=== PATIENT | male | born 1950 | race Caucasian/White ===

== ENCOUNTER → 2018-04-30 14:25 | Outpatient (CLI) | payer MEDICARE, OTHER, SELFPAY ==
--- NOTE | 2018-04-30 | DI.RAD.S_ITS ---
PROCEDURE: XR SHOULDER RT MIN 2V INDICATIONS: ARTHROPATHIES TECHNIQUE: 3 views of the shoulder were acquired. COMPARISON: None. FINDINGS: Bones: No fractures or dislocations. No suspicious bony lesions. Visualized ribs appear intact. Degenerative changes are seen, including mild to moderate subacromial spurring. Soft tissues: No suspicious soft tissue calcifications. The visualized lung demonstrates an unremarkable appearance. IMPRESSION: Age-appropriate degenerative changes can be seen. Dictated by: Javi Cancino M.D. on 04/30/2018 at 15:21 Approved by: Javi Cancino M.D. on 04/30/2018 at 15:22
== END ==
PROVIDERS: Family Provider Family Medicine; PCP Family Medicine; Visit Provider Family Medicine
DX: M19.011 Primary osteoarthritis, right shoulder (principal)
CPT/HCPCS: 73030

== ENCOUNTER → 2018-10-26 08:45 | Outpatient (CLI) | payer MEDICARE, OTHER, SELFPAY ==
--- NOTE | 2018-10-26 | DI.RAD.S_ITS ---
PROCEDURE: XR CHEST 2V INDICATIONS: Acute bronchitis, unspecified TECHNIQUE: 2 views of the chest were acquired. COMPARISON: [facility], CHEST 2 VIEW, 04/23/2007, 16:45. [facility], CHEST 2 VIEW, 11/17/2014, 15:20. FINDINGS: Surgical changes and devices: None. Lungs and pleura: Chronic elevation of the right hemidiaphragm. There is a 1.1 x 0.9 cm oval shaped nodular density in the left upper lung zone, unchanged from 11/17/2014, likely benign. Lungs are otherwise clear. No pleural effusions or pneumothorax. Mediastinum: Mediastinal contours are normal. Heart size is normal. Bones and chest wall: No suspicious bony abnormalities. Soft tissues appear unremarkable. IMPRESSION: No acute cardiopulmonary disease. Dictated by: Tyrell Gutierrez M.D. on 10/26/2018 at 10:09 Approved by: Tyrell Gutierrez M.D. on 10/26/2018 at 10:11
== END ==
PROVIDERS: Family Provider Family Medicine; PCP Family Medicine; Visit Provider Family Medicine
DX: J20.9 Acute bronchitis, unspecified (principal)
CPT/HCPCS: 71046

== ENCOUNTER → 2019-07-21 07:32 | Outpatient (CLI) | payer MEDICARE, OTHER, SELFPAY ==
--- NOTE | 2019-07-21 | DI.US.S_ITS ---
ULTRASOUND OF LEFT BREAST: 07/21/2019 CLINICAL: Focal left breast tenderness and lump after falling. No prior exams were available for comparison. Real-time ultrasound of the left breast was performed. Florez scale images of the real-time examination were reviewed. No significant abnormalities were seen sonographically in the left breast. Specifically, no sonographic abnormalities were seen in the area of pain and trauma at the level of the nipple. IMPRESSION: NEGATIVE There is no sonographic evidence of malignancy. There is no abnormality seen in the left breast to correspond with the area of clinical concern, palpable abnormality, and pain in the sub-areolar depth, however, clinical followup is recommended to ensure resolution of symptoms. This exam was interpreted at Station ID: [id number]. Electronically Signed By: Maximino Fortune M.D. aty/:07/21/2019 08:17:48 Ultrasound BI-RADS: 1 Negative
== END ==
PROVIDERS: Family Provider Family Medicine; PCP Family Medicine; Visit Provider Family Medicine
DX: N63.20 Unspecified lump in the left breast, unspecified quadrant (principal); N64.4 Mastodynia
CPT/HCPCS: 76642

== ENCOUNTER 2019-09-02 07:04 | Day surgery (SDC) | payer MEDICARE, OTHER, SELFPAY ==
--- NOTE | 2019-09-02 | PATH_ITS ---
[facility] Accession Number: [id number] . 01 Material submitted: . PART A: colon - ASCENDING COLON POLYP PART B: colon - COLON POLYP AT 60 CM . 01 Clinical history: . SCREENING COLONOSCOPY . 02 Diagnosis: A. Ascending Colon, Polyp, Biopsy: Tubular adenoma. . B. Colon, Polyp at 60 cm, Biopsy: Tubular adenoma. MRV 09/03/2019 1257 Local . 02 Electronically signed: . Jasmin Kamara MD, Pathologist NPI- [id number] . 01 Gross description: . Part A: ASCENDING COLON POLYP: Received in formalin are 4 fragment(s) of reyes, soft tissue measuring 0.1 x 0.1 x 0.1 cm to 0.3 x 0.2 x 0.2 cm submitted entirely in 1 cassette(s) Part B: COLON POLYP AT 60 CM: Received in formalin is 1 fragment(s) of reyes, soft tissue measuring 0.3 x 0.2 x 0.2 cm submitted entirely in 1 cassette(s) /[facility] 09/02/2019 1919 Local . 02 Pathologist provided ICD-10: D12.2, D12.6 . 02 CPT . 894255, [id number] Performed at: 01 [facility] [address] [facility], [place], [place] [id number] MD Reese Vicente MD Phone: [phone] Performed at: 02 [facility] [address] [place], [place] [id number] MD Jasmin Kamara MD Phone: [phone]
[2019-09-02] MEDS: SODIUM CHLORIDE 0.9% 1,000 ML 200 ML IV (08:01)
[2019-09-02 08:05] VITALS: BP 142/91; PULSE 63; RESP 16; TEMP 36.6; O2SAT 97; BMI 32.8
--- NOTE | 2019-09-02 08:42 | PM.PREOP ---
Pre-operative Note Interval Note History & Physical reviewed/Exam performed by Physician: Yes Changes to H&P: No ASA Class (for procedural sedation): II
--- NOTE | 2019-09-02 09:18 | PM.OP.ENDO ---
Operative Date/Time/Diagnoses Date of procedure: 09/02/19 Time of procedure: 09:18 Pre-op diagnosis: Screening exam. History of diverticulitis. Post-op diagnosis: same (Two small polyps removed. Extensive sigmoid diverticulosis.) Procedure & Clinicians Study performed: Colonoscopy with cold biopsy Same procedure as scheduled: Yes Indications: Screening. Last exam 5 years ago Surgeon: Wilmer Ibrahim Procedure Notes SCOAP/Timeout: Performed Procedure in detail: The patient was placed in the left lateral decubitus position and underwent IV sedation directed by the surgeon consisting of fentanyl and Versed. Digital exam was unremarkable. I could not feel his prostate.. The scope was inserted and advanced through the rectum into the sigmoid, descending, transverse, and ascending colon. The patient was noted to have extensive sigmoid diverticulosis. The cecum was reached identified by the ileocecal valve and the appendiceal opening. The ileocecal valve was briefly cannulated. The terminal ileum was normal in appearance. The scope was gradually brought out. Polyps were found at ascending colon(polyp was removed during insertion) and at 60 cm. The scope ultimately was retroflexed in the rectum. The appearance was normal. The scope was removed and the patient tolerated the procedure well. Prep was adequate Scope withdrawal time: 7-1/2 minutes Sedation minutes: 21 Findings: diverticulosis (Sigmoid) and polyp (Two small polyps) Specimen(s): other (Polyps) Complications: none Post-procedure Recommendations: Colonscopy in 5 years Follow up: as needed Disposition: PACU
[2019-09-02] MEDS: MIDAZOLAM 5 MG/5 ML VIAL IV (09:20)
[2019-09-02 09:21] VITALS: BP 133/84; PULSE 55; RESP 10; TEMP 36.8; O2SAT 97
[2019-09-02] MEDS: fentaNYL 250 MCG/5 ML INJ IV (09:21)
[2019-09-02 09:26] VITALS: BP 138/84; PULSE 56; RESP 10; O2SAT 95
[2019-09-02 09:31] VITALS: BP 129/85; PULSE 60; RESP 20; TEMP 36.5; O2SAT 97
[2019-09-02 09:36] VITALS: BP 135/85; PULSE 60; RESP 19; O2SAT 97
[2019-09-02 09:40] VITALS: BP 122/80; PULSE 58; RESP 16; TEMP 36.1; O2SAT 97
== END 2019-09-02 09:52 | disposition home or self-care (01) ==
PROVIDERS: Family Provider Family Medicine; PCP Family Medicine; Visit Provider Specialist
PROC: 0DJD8ZZ Inspection of Lower Intestinal Tract, Via Natural or Artificial Opening Endoscopic (ICD-10-PCS; CPT 45378; principal; 2019-09-02 08:45)
DX: Z12.11 Encounter for screening for malignant neoplasm of colon (principal); Z86.010 Personal history of colon polyps; Z87.19 Personal history of other diseases of the digestive system; K57.30 Diverticulosis of large intestine without perforation or abscess without bleeding; D12.2 Benign neoplasm of ascending colon; D12.6 Benign neoplasm of colon, unspecified
CPT/HCPCS: 45380; 99152; J2250; J3010

== ENCOUNTER → 2019-10-05 07:41 | Outpatient (CLI) | payer MEDICARE, OTHER, SELFPAY ==
--- NOTE | 2019-10-05 07:42 | DI.US.S_ITS ---
PROCEDURE: US CAROTID DOPPLER BI INDICATIONS: BILATERAL CAROTID BRUITS IN FORMER SMOKER TECHNIQUE: Color and pulse Doppler interrogation was performed of both carotid systems, with image documentation and velocity measurements. COMPARISON: None. FINDINGS: Stenosis calculations are based on SRU (Society of Radiologists in Ultrasound) criteria. The flow velocities and the arterial waveforms are normal within both carotid arterial systems. Atherosclerotic plaque is seen on both sides. The estimated degree of internal carotid artery stenosis is less than 50%. Antegrade flow is confirmed within both vertebral arteries. IMPRESSION: No hemodynamically significant stenosis is seen. Atherosclerotic plaque is noted bilaterally. Dictated by: Javi Cancino M.D. on 10/05/2019 at 11:37 Approved by: Javi Cancino M.D. on 10/05/2019 at 11:38
--- NOTE | 2019-10-05 09:20 | PM.TREADMILL ---
Cardiac Stress Test Report Referral & Results Date Patient Seen: 10/05/19 Time Patient Seen: 09:20 Requesting provider: Wilmer Ibrahim Indication: fatigue, dyspnea Rest ECG: sinus rhythm Procedure Note: Standard zuleyka protocol, 5:31, 6.4 mets reduced exercise capacity normal hemodynamic response to exercise no chest pain or anginal symptoms; moderate dyspnea at peak exercise No ST changes with exercise. No ectopy Impression: normal exercise stress test Please note: Actual ECG tracings can be found in the PACS system.
== END ==
PROVIDERS: Family Provider Family Medicine; PCP Family Medicine; Referring Provider Specialist; Visit Provider Specialist
DX: I65.23 Occlusion and stenosis of bilateral carotid arteries (principal); R06.00 Dyspnea, unspecified; R53.83 Other fatigue; R06.02 Shortness of breath; R09.89 Other specified symptoms and signs involving the circulatory and respiratory systems; Z87.891 Personal history of nicotine dependence
CPT/HCPCS: 93016; 93017; 93880

== ENCOUNTER → 2020-04-12 12:14 | Outpatient (CLI) | payer MEDICARE, OTHER, SELFPAY ==
--- NOTE | 2020-04-12 | DI.RAD.S_ITS ---
PROCEDURE: XR KNEE LT 3V INDICATIONS: LEFT KNEE PAIN TECHNIQUE: 3 views of the knee were acquired. COMPARISON: [facility], , KNEE 3V RIGHT, 07/09/2007, 12:02. FINDINGS: Bones: No fractures or dislocations. No suspicious bony lesions. Soft tissues: No joint effusion. No suspicious soft tissue calcifications. IMPRESSION: Normal for age, source of current knee pain symptoms is not seen. Dictated by: Srikanth Liao M.D. on 04/12/2020 at 13:16 Approved by: Srikanth Liao M.D. on 04/12/2020 at 13:53
== END ==
PROVIDERS: Family Provider Family Medicine; PCP Family Medicine; Referring Provider Family Medicine; Visit Provider Family Medicine
DX: M25.562 Pain in left knee (principal)
CPT/HCPCS: 73562

== ENCOUNTER → 2022-03-06 07:46 | Outpatient (CLI) | payer MEDICARE, OTHER, SELFPAY ==
--- NOTE | 2022-03-06 | DI.US.S_ITS ---
PROCEDURE: US ABDOMEN COMPLETE INDICATIONS: Abdominal distension (gaseous) TECHNIQUE: Real-time scanning was performed of the abdominal and retroperitoneal organs, with image documentation. COMPARISON: None. FINDINGS: Liver: The liver demonstrates mildly enlarged size. The liver demonstrates generalized moderately increased echogenicity. This decreases ultrasound sensitivity for detection of hepatic masses. Numerous simple appearing liver cysts are seen, with the largest on the right measuring up to 3.3 cm and the largest on the left measuring up to 4.2 cm. Gallbladder: No findings of gallstones or sludge are seen. The gallbladder wall is not thickened, measuring 3 mm or less. No specific pericholecystic fluid is seen. The sonographic Salcedo sign is negative. Biliary ducts: Not seen, obscured by overlying bowel gas. Pancreas: Visualized portions of the pancreas are sonographically normal. Spleen: Spleen is normal in size and homogeneous in echotexture. Kidneys: Kidneys are normal in size and echotexture. Right kidney measures 11.7 cm long; left kidney measures 12.4 cm long. No hydronephrosis. No solid masses. On the left, there is a 9 mm nonobstructing stone seen inferiorly. On the right, there is a 2.5 cm simple cyst seen superiorly and anteriorly. Aorta: Visualized aorta is normal in caliber at less than 3 cm. Iliacs: Proximal common iliac arteries are normal in caliber at less than 2.5 cm. IVC: Intrahepatic inferior vena cava is patent. Miscellaneous: No free abdominal fluid. IMPRESSION: A cause of bloating is not identified. 9 mm nonobstructing left-sided kidney stone. Enlarged, fatty liver. Normal appearing gallbladder. The biliary tree is not seen, secondary to overlying bowel gas. Incidental note is made of: Simple appearing liver cysts Simple appearing right renal cyst Dictated by: Javi Cancino M.D. on 03/06/2022 at 10:08 Approved by: Javi Cancino M.D. on 03/06/2022 at 10:10
== END ==
PROVIDERS: Family Provider Family Medicine; PCP Family Medicine; Referring Provider Family Medicine; Visit Provider Family Medicine
DX: N20.0 Calculus of kidney (principal); K76.0 Fatty (change of) liver, not elsewhere classified; N28.1 Cyst of kidney, acquired; K76.89 Other specified diseases of liver; R14.0 Abdominal distension (gaseous)
CPT/HCPCS: 76700

== ENCOUNTER → 2022-03-29 13:19 | Outpatient (CLI) | payer MEDICARE, OTHER, SELFPAY ==
--- NOTE | 2022-03-29 | DI.ECHO.S_ITS ---
Version: 1 Study ID: [id number] [address] [place] [address] Name: GEMMA HUIZAR Study Date: 03/29/2022, 1: 45 PM : 1950 BP: 151 / 92 mmHg Gender: Male Height: 73 in Age: 72 Years Weight: 259 lb BSA: 2.40 mA? Ordering: CRISS MONK Referring: CRISS MONK Clinician: Sebas Giraldo Reason For Study: Hypertension History: Summary Statements Normal sinus rhythm; uncontrolled blood pressure with systolic blood pressure of 151 mm Hg. Normal LV size and wall thickness. Normal wall motion and left ventricular systolic function. Ejection fraction is 60-65%. Stage I diastolic dysfunction. Aortic valve leaflets are mildly thickened. However, they open well. There is moderate aortic stenosis based on continuous-wave Doppler data with peak velocity of 3.7 m/s and mean gradient of 29 mmHg. There is mild associated aortic regurgitation. Mildly dilated aortic root measuring 4 cm. Incidental note is made of liver cysts. Compared to prior study performed in 2012, aortic stenosis is newly described. Ascending aorta dimension fell from 4cm to 3.7 cm. Liver cysts are newly described. Procedure: A two-dimensional transthoracic echocardiogram with color flow and Doppler was performed. The study quality was technically adequate. Comparison is made with the echocardiogram of 05/05/2012. Left Ventricle: The left ventricle is normal in size and wall thickness. Left ventricular systolic function is normal. The ejection fraction is estimated to be 60-65%. There are no focal wall motion abnormalities. Diastolic parameters suggest a relaxation abnormality of the left ventricle, consistent with probable normal filling pressures. Right Ventricle: The right ventricle is normal in size and function. Atria: Both atria are normal in size. The interatrial septum grossly appears intact with no obvious evidence for an atrial septal defect. Mitral Valve: There is mild mitral annular calcification. There is no mitral regurgitation noted. Aortic Valve: There is mild aortic valve sclerosis. There is minimally reduced leaflet mobility. The calculated aortic valve area is 1.7 cm2. There is moderate aortic stenosis. There is mild aortic regurgitation. Tricuspid Valve: The tricuspid valve is normal in structure and function. No tricuspid regurgitation. Pulmonary artery pressures cannot be estimated because of the lack of a measurable TR jet velocity. Pulmonic Valve: The pulmonic valve is not well seen, but is grossly normal. There is no pulmonic valvular regurgitation. Great Vessels: The aortic root is mildly dilated. The IVC is of normal diameter and collapses greater than 50% with a sniff. This suggests a low right atrial pressure of 3 mm Hg. Pericardium/ Pleura: There is no pericardial effusion. There is no pleural effusion. 2D and M-Mode Measurements and Calculations LVIDd: 5.3 cm LVOT diam: 2.14 cm LVIDs: 3.3 cm Ao root diam: 4.0 cm IVSd: 0.99 cm asc Aorta Diam: 3.7 cm LVPWd: 1.14 cm LV garcia. diameter/BSA (cm/m^2): 2.22 LV sys. diameter/BSA (cm/m^2): 1.36 TAPSE: 2.27 cm LA A4 area: 20.2 e business consultant? RA area: 13.2 e business consultant? LA A2 area: 23.4 e business consultant? RA long axis: 5.0 cm LA length (vol): 5.3 cm RA vol: 29.8 ml LA vol: 76.2 ml RA : 12.4 ml/mA? LA vol index: 31.7 ml/mA? Doppler Measurements and Calculations Ao V2 max: 343.1 cm/sec LVOT Max Henry: 160.4 cm/sec Ao V2 mean: 235.8 cm/sec LV V1 max P.3 mmHg Ao V2 VTI: 69.2 cm LV V1 VTI: 32.1 cm Ao max P.3 mmHg Ao mean P.1 mmHg MARTINE(I,D): 1.67 e business consultant? MARTINE(V,D): 1.69 e business consultant? MARTINE indexed to BSA (cm^2/m^2): 0.70 sev ratio: 0.46 AI P1/2t: 343.4 msec AI dec slope: 315.5 cm/secA? MV E max henry: 99.0 cm/sec MV dec time: 0.25 sec MV A max henry: 119.1 cm/sec MV E/A: 0.83 Med Peak E' Henry: 6.6 cm/sec Lat Peak E' Henry: 6.6 cm/sec E/e' average: 15.0 Electronically signed by: Trini Ewing M.D. 03/29/2022, 8: 27 PM
== END ==
PROVIDERS: Family Provider Family Medicine; PCP Family Medicine; Referring Provider Family Medicine; Visit Provider Family Medicine
DX: I35.2 Nonrheumatic aortic (valve) stenosis with insufficiency (principal); I10 Essential (primary) hypertension; I77.810 Thoracic aortic ectasia; K76.89 Other specified diseases of liver
CPT/HCPCS: 93306

== ENCOUNTER → 2022-04-22 11:48 | Outpatient (CLI) | payer MEDICARE, OTHER, SELFPAY ==
--- NOTE | 2022-04-22 12:09 | DI.RAD.S_ITS ---
PROCEDURE: XR ABDOMEN 1V INDICATIONS: Kidney stone TECHNIQUE: One view of the abdomen acquired. COMPARISON: None. FINDINGS: Surgical changes and devices: None. Bowel: Bowel gas pattern is normal. Soft tissues: There is a questionable calcification projected over the superior left obturator ring. Visualized solid organ contours appear normal in size. Bones: No suspicious bony lesions. IMPRESSION: 1. No acute intra-abdominal findings. 2. Questionable calcification projected over the superior left obturator ring. Distal ureterolithiasis cannot be excluded. Dictated by: Meena Donaldson M.D. on 04/22/2022 at 12:53 Approved by: Meena Donaldson M.D. on 04/22/2022 at 12:54
== END ==
PROVIDERS: Family Provider Family Medicine; PCP Family Medicine; Referring Provider Urology; Visit Provider Urology
DX: N20.0 Calculus of kidney (principal)
CPT/HCPCS: 74018

== ENCOUNTER → 2022-11-19 10:11 | Outpatient (CLI) | payer MEDICARE, OTHER, SELFPAY ==
--- NOTE | 2022-11-19 | DI.RAD.S_ITS ---
PROCEDURE: XR ABDOMEN 1V INDICATIONS: Calculus of kidney TECHNIQUE: One view of the abdomen acquired. COMPARISON: [facility], CR, XR ABDOMEN 1V, 04/22/2022, 12:12. FINDINGS: Surgical changes and devices: None. Bowel: Bowel gas pattern is normal. Soft tissues: No suspicious abdominal calcifications. Visualized solid organ contours appear normal in size. Stable pelvic calcifications, including the 1.3 centimeter linear calcification projecting in the expected position of the distal left ureter. 0.5 centimeter stone projects over the inferior calyx of the left kidney. 0.4 centimeter stone projects over the right lower quadrant, right of midline, possibly within the ureter. Bones: No suspicious bony lesions. IMPRESSION: 4 millimeter stone projects over the right lower quadrant, possibly within the right ureter. Correlate with right flank pain. 5 millimeter stone overlying the inferior calyx of the left kidney. Stable pelvic calcifications. Dictated by: Buck Wallace M.D. on 11/19/2022 at 13:09 Approved by: Buck Wallace M.D. on 11/19/2022 at 13:11
== END ==
PROVIDERS: Family Provider Family Medicine; PCP Family Medicine; Referring Provider Urology; Visit Provider Urology
DX: Z12.5 Encounter for screening for malignant neoplasm of prostate (principal); N20.0 Calculus of kidney
CPT/HCPCS: 36415; 74018; 84153; G0103

== ENCOUNTER → 2023-10-14 08:03 | Outpatient (CLI) | payer MEDICARE, OTHER, SELFPAY ==
--- NOTE | 2023-10-14 08:05 | DI.ECHO.S_ITS ---
[facility] +---------+ : : [address] : : : : [id number] : : : : Phone: [phone]+ Echocardiogram Report + + :Name: GEMMA HUIZAR Study Date: 10/14/2023 Height: 72 in : :[facility] ReadingLocation: Weight: 248 lb : : Gender: Male BSA: 2.3 m2 : :: 1950 Age: 73 yrs BP: 141/94 mmHg: :Reason For Study: HYPERTENSION : :Ordering Physician: LACHO, : :CRISS Barahona Performed By: Nita Gomez : :Referring: CRISS MONK : + + Interpretation Summary The ejection fraction is estimated to be 60-65%. Diastolic parameters suggest probable normal left ventricular diastolic function and normal filling pressures. The right ventricle is normal in size and function. There is moderate aortic stenosis. There is mild aortic regurgitation. There is mild tricuspid regurgitation. The right ventricular systolic pressure is estimated to be at least 21 mmHg based on an estimated right atrial pressure of 3 mm Hg. Compared to the prior study dated 03/29/2022, no significant change. Procedure: A two-dimensional transthoracic echocardiogram with color flow and Doppler was performed. The study quality was technically adequate. Comparison is made with the echocardiogram of 03/29/2022. The patient was in sinus bradycardia with heart rates between 47-54 bpm during the exam. Left Ventricle: The left ventricle is normal in size and wall thickness. Proximal septal thickening is noted. The ejection fraction is estimated to be 60-65%. Diastolic parameters suggest probable normal left ventricular diastolic function and normal filling pressures. Right Ventricle: The right ventricle is normal in size and function. Atria: The left atrial size is normal. Right atrial size is normal. There is no Doppler evidence for an interatrial shunt. Mitral Valve: There is mild mitral annular calcification. The mitral valve leaflets appear mildly thickened, but open well. There is no mitral regurgitation noted. Aortic Valve: The aortic valve is moderately calcified. The peak aortic velocity is 3.3 m/sec. The aortic valve mean gradient is 23 mmHg. The calculated aortic valve area is 1.3 cm2. There is moderate aortic stenosis. There is mild aortic regurgitation. Tricuspid Valve: The tricuspid valve is normal in structure and function. There is mild tricuspid regurgitation. The right ventricular systolic pressure is estimated to be at least 21 mmHg based on an estimated right atrial pressure of 3 mm Hg. Pulmonic Valve: The pulmonic valve is not well visualized. There is a trace or physiologic amount of pulmonic regurgitation. Great Vessels: The aortic root is borderline dilated. The dimensions of the ascending aorta are normal. The IVC is of normal diameter and collapses greater than 50% with a sniff. This suggests a low right atrial pressure of 3 mm Hg. Pericardium/ Pleura There is no pericardial effusion. There is no pleural effusion. MMode/2D Measurements & Calculations LVIDd: 5.8 cm LVOT diam: 2.2 cm LVIDs: 3.4 cm Ao root diam: 4.0 cm FS: 40.9 % asc Aorta Diam: 3.8 cm IVSd: 1.0 cm Ao Arch Diam (Prox Trans): 3.2 cm LVPWd: 1.1 cm LV garcia. diameter/BSA (cm/m^2): 2.5 LV sys. diameter/BSA (cm/m^2): 1.5 LA A2 area: 25.5 cm2 RA long axis: 5.1 cm LA A4 area: 17.1 cm2 RA area: 14.0 cm2 LA length (vol): 5.3 cm RA vol: 32.6 ml LA vol: 69.3 ml RA : 14.0 ml/m2 LA vol index: 29.7 ml/m2 IVC diam: 2.0 cm RVD1 (basal): 3.6 cm RVD2 (mid): 3.1 cm TAPSE: 1.9 cm Doppler Measurements & Calculations Ao V2 max: 330.6 cm/sec LVOT Max Henry: 110.8 cm/sec Ao V2 mean: 218.2 cm/sec LV V1 max P.9 mmHg Ao max P.6 mmHg LV V1 VTI: 28.1 cm Ao mean P.8 mmHg MARTINE(I,D): 1.5 cm2 Ao V2 VTI: 68.7 cm MARTINE(V,D): 1.3 cm2 sev ratio: 0.41 MARTINE indexed to BSA (cm^2/m^2): 0.66 AI P1/2t: 704.7 msec AI dec slope: 143.2 cm/sec2 MV E max henry: 87.9 cm/sec TR max henry: 209.7 cm/sec MV A max henry: 111.6 cm/sec TR max P.6 mmHg MV E/A: 0.79 PA V2 max: 88.8 cm/sec Med Peak E' Henry: 7.0 cm/sec PA V2 mean: 62.3 cm/sec E/E' med: 12.6 PA mean P.7 mmHg Lat Peak E' Henry: 8.3 cm/sec PA pr(Accel): 8.8 mmHg E/E' lat: 10.6 E/e' average: 11.6 MV dec time: 0.24 sec SV(LVOT): 106.4 ml Reading Physician:10:12 PM
== END ==
PROVIDERS: Family Provider Family Medicine; PCP Family Medicine; Referring Provider Family Medicine; Visit Provider Family Medicine
DX: I10 Essential (primary) hypertension (principal); I08.3 Combined rheumatic disorders of mitral, aortic and tricuspid valves
CPT/HCPCS: 93306

== ENCOUNTER → 2025-01-26 07:39 | Outpatient (CLI) | payer OTHER, SELFPAY ==
[2025-01-26 10:00] LABS: Alanine Aminotransferase 17 IU/L (<50); Albumin 4.4 g/dL (3.5-5.0); Alkaline Phosphatase 74 U/L (38-126); Aspartate Aminotransferase 27 IU/L (17-59); BUN Creatinine Ratio 18.8 (6-22); Bilirubin Total 0.6 mg/dL (0.2-1.3); Blood Urea Nitrogen 16 mg/dL (9-20); Calcium 9.4 mg/dL (8.4-10.2); Carbon Dioxide 27 mmol/L (22-32); Chloride 105 mmol/L (98-107); Estimated Glomerular Filt Rate > 60 mL/min (>60); Globulin 2.2 g/dL (1.7-4.1); Glucose 96 mg/dL (70-99); HEMOLYSIS < 15 (0-50); Potassium 4.1 mmol/L (3.4-5.1); Sodium 141 mmol/L (137-145); Total Protein 6.6 g/dL (6.3-8.2)
[2025-01-26 10:12] LABS: Appearance Urine UA CLEAR; Bilirubin Urine UA NEGATIVE (NEGATIVE); Color Urine UA YELLOW; Glucose Urine UA NEGATIVE (Negative); Ketones Urine UA NEGATIVE (NEGATIVE); Leukocyte Esterase Urine UA NEGATIVE (NEGATIVE); Nitrite Urine UA NEGATIVE (Negative); Occult Blood Urine UA NEGATIVE (Negative); Protein Urine UA 1+ (Negative); Urobilinogen Urine UA 0.2 E.U./dL (0.2)
[2025-01-26 10:13] LABS: Bacteria Urine None Seen; Culture Indicated Urine Cult Not Indicated; RBC Urine 0-1/HPF (0-5/HPF); Squamous Epithelial Cell Urine 0-1 /HPF (0-5/HPF); Urine Volume 10mL (spun); WBC Urine 0-1/HPF (0-5/HPF)
== END ==
LOC: LAB 07:41
PROVIDERS: Family Provider Family Medicine; PCP Family Medicine; Referring Provider Chiropractor; Visit Provider Chiropractor
DX: N18.9 Chronic kidney disease, unspecified (principal)
CPT/HCPCS: 36415; 80053; 81001